=== PATIENT | male | born 1965 ===

== ENCOUNTER 2017-12-08 13:37 | Emergency (ER) | payer BC ==
[2017-12-08 13:37] VITALS: BMI 29.7
[2017-12-08 14:00] VITALS: RESP 18
[2017-12-08] MEDS ORDERED: Naproxen 550 mg Tab PO STA (14:36)
[2017-12-08] MEDS ORDERED: Naproxen 550 mg Tab PO ONE (14:42)
--- NOTE | 2017-12-08 15:22 | RAD ---
PROCEDURE: Radiographs of the Lumbar Spine. HISTORY: pain COMPARISON: No prior. FINDINGS: BONES: Normal alignment. No listhesis. No fracture. DISC SPACES: Narrowing of L4-5 and L5-S1 intervertebral disc space consistent with mild degenerative disc disease. OTHER FINDINGS: None. IMPRESSION: Degenerative disc disease at L4-5 and L5-S1.
[2017-12-08 15:25] LABS: URINE BILIRUBIN NEGATIVE (NEGATIVE); URINE BLOOD NEGATIVE (NEGATIVE); URINE CLARITY Hazy (Clear); URINE COLOR Amber (YELLOW); URINE GLUCOSE (UA) NORMAL (Normal); URINE LEUKOCYTE ESTERASE NEG Leu/uL (Negative); URINE PROTEIN NEGATIVE (NEGATIVE)
--- NOTE | 2017-12-08 15:39 | C.PDOC ---
History Of Present Illness Patient is a 52 y/o male with PMD HIV, who presents to the ED with a complaint of lower right sided back pain since [facility]. He notes that he bent down to meat pickler a water bottle and upon straightening up, felt pull on right side of back. H/o similar episode 8 years ago with MRI showing DJD and disc herniation. Patient denies any numbness, weakness, urinary or bowel incontinence, hematuria or fever. Time Seen by Provider: 12/08/17 13:53 Chief Complaint (Nursing): Back Pain History Per: Patient History/Exam Limitations: no limitations Onset/Duration Of Symptoms: Days (Wednesday 12/06) Current Symptoms Are (Timing): Still Present Exacerbating Factor(s): Movement Recent travel outside of the [place]: No Past Medical History Reviewed: Historical Data, Nursing Documentation, Vital Signs Vital Signs: Last Vital Signs Temp 98.8 F 12/08/17 15:59 Pulse 82 12/08/17 15:59 Resp 18 12/08/17 15:59 BP 121/74 12/08/17 15:59 Pulse Ox 97 12/08/17 17:48 - Medical History PMH: Fractures (RT. SMALL TOE), HIV, Hypothyroidism Denies: Chronic Kidney Disease Surgical History: Endoscopy, Tonsillectomy Family History: States: No Known Family Hx - Social History Hx Tobacco Use: No Hx Alcohol Use: No Hx Substance Use: No - Immunization History Hx Tetanus Toxoid Vaccination: No Hx Influenza Vaccination: Yes Hx Pneumococcal Vaccination: No Review Of Systems Constitutional: Negative for: Fever Musculoskeletal: Positive for: Back Pain (lower right side). Negative for: Leg Pain Neurological: Negative for: Weakness, Numbness Physical Exam - Physical Exam Appears: Non-toxic, No Acute Distress Head: Atraumatic, Normacephalic Eye(s): bilateral: Normal Inspection, EOMI Nose: Normal Oral Mucosa: Moist Neck: Normal ROM, Supple Chest: Symmetrical Respiratory: No Accessory Muscle Use Back: No CVA Tenderness, No Vertebral Tenderness, No Muscle Spasm, Paraspinal Tenderness (right sided paravertebral and buttocks tenderness) Extremity: Normal ROM, No Tenderness Extremity: Bilateral: Atraumatic Pulses: Left Dorsalis Pedis: Normal, Right Dorsalis Pedis: Normal Neurological/Psych: Oriented x3, Normal Speech, Normal Cognition, Normal Motor, Normal Sensation Gait: Steady ED Course And Treatment O2 Sat by Pulse Oximetry: 97 - Other Rad LS Spine XR X-Ray: Interpreted by Me, Viewed By Me Interpretation: PROCEDURE: Radiographs of the Lumbar Spine. HISTORY: pain. COMPARISON: No prior. FINDINGS: BONES: Normal alignment. No listhesis. No fracture. DISC SPACES: Narrowing of L4-5 and L5-S1 intervertebral disc space consistent with mild degenerative disc disease. OTHER FINDINGS: None. IMPRESSION: Degenerative disc disease at L4-5 and L5-S1. Progress Note: Flexeril and anaprox administered. On reassessment, patient is resting comfortably, with improvement of back pain. Patient remains afebrile, with no bony tenderness, extremity numbness or weakness, or abdominal pain. Patient is ambulatory in the emergency department with no signs of discomfort. Patient was advised to follow up with physician/clinic in 1-2 days Disposition - Disposition Referrals: Thiago Hillman MD [Staff Provider] - Disposition: HOME/ ROUTINE Disposition Time: 15:33 Condition: STABLE Additional Instructions: Follow up with your primary medical doctor or clinic in 2-5 days for further evaluation. Take medications as prescribed. Return to the emergency department at any time if symptoms persist or worsen. Prescriptions: Cyclobenzaprine [Cyclobenzaprine HCl] 10 mg PO TID #10 tab Naproxen [Naprosyn] 1 tab PO BID PRN #20 tab PRN Reason: Pain Instructions: Low Back Pain (DC) Forms: [employer] (Irish) - Clinical Impression Clinical Impression: Low back pain - Scribe Statement The provider has reviewed the documentation as recorded by the Scribe Jammie Kramer All medical record entries made by the Scribe were at my direction and personally dictated by me. I have reviewed the chart and agree that the record accurately reflects my personal performance of the history, physical exam, medical decision making, and the department course for this patient. I have also personally directed, reviewed, and agree with the discharge instructions and disposition.
[2017-12-08 16:00] VITALS: BP 121/74; PULSE 82; TEMP 98.8
[2017-12-08 16:36] VITALS: O2SAT 97
== END 2017-12-08 16:00 | disposition home or self-care (01) ==
LOC: C.ER 13:37
DX: M54.5 Low back pain (principal)

== ENCOUNTER 2018-11-17 17:18 | Outpatient (CLI) | payer BC | END 2018-11-17 17:19 | disposition home or self-care (01) | LOC: C.RADIC 17:18 ==